=== PATIENT | male | born 1940 | race Caucasian/White ===

== ENCOUNTER 2024-07-23 11:39 | Inpatient (IN) | payer MEDICARE, SELFPAY ==
[2024-07-17 12:33] VITALS: BMI 33.5
--- NOTE | 2024-07-19 15:41 | CM.SWNOTE ---
DCP Pre-Surgery Note: Pt called this [facility] Desk with questions about discharge plans, pt and son (Prateek) are on the call. Pt is concerned as he lives alone on [address] (all children live in [place] and have already determined they are not able to be with patient post-surgery), that he would not be able to sustain recovery independently. Pt discussed a preference for [facility]. DCP discussed at length that pt's surgery of a L TKA is ambulatory and would depend on utilization review as well as PT/OT assessment; pt states he has a co-morbidity of dizziness. DCP explained the levels of rehab and that facilities can be reviewed on Medicare.gov. DCP reviewed other options upon discharge: support on [address] (friends/neighbors), home health. Pt verbalized understanding and reiterated that there is no one else to support locally which is why he is really hoping for a SNF disposition; would be open to home health. Pt and son declined recommendation for private caregiving contacts. Pt son requested his contact info be updated in pt chart as main emergency contact post-surgery, pt consented. Pt main Bladimir KHAN Jr, not available post-surgery, per pt. DCP updated EMR to reflect Prateek as Emergency Contact. Reviewed EMR, it has been identified that CM team is already aware of pt due to previous discussion during Pre-Anesthesia assessment. Plan: Surgery scheduled for July 23, CM team to follow for evolving care plans. BURKE Contreras
[2024-07-23] VITALS (15 sets, daily range): BP systolic 94–148; BP diastolic 43–75; PULSE 72–80; RESP 12–98; TEMP 36.1–37.5; O2SAT 91–99; BMI 33.5
--- NOTE | 2024-07-23 06:00 | DI.RAD.S_ITS ---
PROCEDURE: XR KNEE LT 1TO2V INDICATIONS: TKA TECHNIQUE: 2 view(s) of the knee acquired. COMPARISON: None. FINDINGS: Bones: Patient is status post knee joint arthroplasty. Hardware components are in expected positions. Visualized bony structures are intact. Soft tissues: Overlying postoperative changes are noted. IMPRESSION: Expected post-operative appearance of a knee arthroplasty. Dictated by: Hoda Gordon MD, PhD on 07/24/2024 at 12:21 Approved by: Hoda Gordon MD, PhD on 07/24/2024 at 12:22
[2024-07-23] MEDS: CELECOXIB 200 MG CAPSULE 400 MG PO (12:46)
[2024-07-23] MEDS: ACETAMINOPHEN 325 MG TABLET 975 MG PO (12:46)
[2024-07-23] MEDS: VANCOMYCIN 1,000 MG in SODIUM CHLORIDE 0.9% 250 ML 250 MG IV (12:47)
[2024-07-23] MEDS: LACTATED RINGERS 1,000 ML 42 ML IV (12:48)
--- NOTE | 2024-07-23 13:46 | PM.PREOP ---
Pre-operative Note Interval Note History & Physical reviewed/Exam performed by Physician: Yes Changes to H&P: No
--- NOTE | 2024-07-23 13:47 | PM.OP.1 ---
Operative Date/Time/Diagnoses Date of procedure: 07/23/24 Time of procedure: 14:00 Pre-op diagnosis: left knee total knee Post-op diagnosis: same Procedure & Clinicians Procedure: Left total knee arthroplasty Same procedure as scheduled: Yes Indications: The patient has had progressively worsening left knee pain with radiographic changes consistent with arthritis. Non-operative management has failed and the patient has requested total knee replacement. The risks, benefits and alternatives to surgery were discussed with the patient prior to proceeding. Risks discussed included, but were not limited to, failure to relieve pain, stiffness, infection, nerve damage, deep venous thrombosis, pulmonary embolism, stroke, coma, heart attack, permanent paralysis and , as well as the potential need for eventual revision of the prosthetic. Surgeon: Josee Louis Repair Specialist: Yue Means Anesthesia Type: General and Spinal Operative Notes Findings: Severe left knee OA, adequate stability Closure Type: primary Specimen(s): none sent Prosthetic devices, grafts, tissues, transplants, or devices: Louis and nephew elizabeth BCS2 size 5 femur, size 4 tibia, poly 9, patella 35 by 7.5 Estimated Blood Loss (mL): 250 Blood products transfused: none Tourniquet time (min): 84 Procedure in detail: The patient was seen in the pre-operative area, where the patient identified the left knee as the operative site and this was marked with my initials. The patient received pre-operative antibiotics, and was taken to the operating room and placed on the operative table in the supine position. After satisfactory anesthesia, a radio time sales supervisor out was performed. The left leg was encircled with a tourniquet about the proximal thigh, and the leg was prepared from the toes to the tourniquet with ChloroPrep in the usual fashion and draped through sterile drapes. The leg was elevated and exsanguinated with Eschmark bandage and the tourniquet inflated to [250] mmHg pressure. The PA was used during the procedure and was essential for intraoperative retraction and safe implantation of the components. The knee was approached through an approximately 18 cm incision centered over the patella and carried into the knee through a medial parapatellar arthrotomy. Portion of the medial and lateral meniscus was resected. Soft tissue was carefully mobilized around the patella the patella was measured with a caliper. Bone was resected from the patella and the patellar height was reconstituted with up an appropriate sized patellar component. A cover was then placed on the patella. A small amount of additional medial and lateral meniscus was resected. There was a venous tourniquet and we put the tourniquet down for awhile and then reinflated it to 300 mmHg. Cori pins were placed for robotic assisted navigation. The adjustable guide was pinned to the tibia. Plan was carefully made and developed in order to allow reconstruction of the knee. The knee was meticulously mapped. The Cori robotic bur was used for the distal femoral resection. It looked like an appropriate distal femoral cut and the cut was made without difficulty. The rotation was assessed and the appropriate size femoral guide was placed on the distal femur and finishing cuts were made. There was no evidence of notching. The anterior, posterior and chamfer cuts were then made. The posterior osteophytes and soft tissues were then removed. The posterior capsule was injected with part of a mixture of 60 ml 0.25% Marcaine mixed with 20 ml Exparel for post operative pain control. The remainder of this mixture was injected into the capsule and subcutaneous tissues during cement curing. The tibial guide was carefully and meticulously navigated. The proximal tibial cut was made without difficulty. The patient was placed in extension residual medial and lateral meniscus as well as any residual bone was carefully resected. [No] additional tibia was resected. Hemostasis was achieved especially posteriorly. Additional local was injected into the posterior capsule. The extension gap was assessed. The femoral component was trial was placed and the notch was finished. Trial tibial and femoral components were then placed and the knee placed through a range of motion. Range of motion was [0-130], with good stability throughout the range. The trials were then removed, and the tibia was finished. The bone was prepared with pulsatile lavage, and dried with a sponge. Cement was applied and the final prosthetics placed. Excess cement was removed during and after cement curing. A brief Betadine soak was performed. After confirming there was no extruded cement posteriorly, the final tibial insert was placed. The knee was copiously irrigated and the tourniquet deflated. Hemostasis was obtained with the Aquamantis. The capsule was closed with interrupted # 1 Vicryl suture. The subcutaneous layer was closed with barbed sutures, and the skin with a running 3-0 V-Lock suture and Surgical glue. An Aquacel Ag dressing was applied and the patient was taken to recovery having tolerated the procedure well. Complications: none Post-operative Condition: stable Disposition: Acute Care Plan for aftercare: The patient will be maintained on a standard total knee replacement protocol with weight bearing as tolerated. The patient will receive aspirin and sequential compression devices for DVT prophylaxis. The patient will be discharged home when safe for the home environment.
[2024-07-23] MEDS: CEFAZOLIN 2 GM/100 ML PREMIX 100 ML IV ×2 (14:40→22:33)
[2024-07-23] MEDS: TRANEXAMIC ACID 1,000 MG VIAL 1000 MG INJ ×2 (14:50→16:35)
--- NOTE | 2024-07-23 14:59 | SUR.OPER ---
Supine on padded OR bed. Pillow under head, arms secured on padded armboards <90 degree abduction. Safety belt across torso. Non-operative leg secured with tape over blanket over lower leg. Operative leg secured in DeMayo/Woodrow/Nathe positioner. Foam padded brace at thigh of operative leg.
[2024-07-23] MEDS: BUPIVACAINE LIPOSOME 266 MG/20 ML VIAL INJ (15:07)
[2024-07-23] MEDS: BUPIVACAINE 0.25% W/ EPI 30 ML VIAL 60 ML INJ (15:10)
[2024-07-23] MEDS: LACTATED RINGERS 1,000 ML 100 ML IV (19:06)
--- NOTE | 2024-07-23 19:41 | PC.NURSE ---
Patient arrived to room 212 at 1800. He is A&OX4, VSS, afebrile on RA. He denies pain, and reports LLE completely numb, soft ankle waves. IVF running at 100 ml/hr, admission assessment completed, POSTOP VS per protocol. BG 178 this evening. Endorsed to oncoming shift skin assessment. Patient states last voided approximately 11 30 a.m.
[2024-07-23] MEDS: ASPIRIN EC 81 MG TABLET PO (20:31)
[2024-07-23] MEDS: ATORVASTATIN 20 MG TABLET PO (20:31)
[2024-07-23] MEDS: DOCUSATE 100 MG CAPSULE PO (20:31)
[2024-07-23] MEDS: TAMSULOSIN 0.4 MG CAPSULE PO (20:31)
--- NOTE | 2024-07-23 23:07 | CM.MNRNOTE ---
Unable to void, reported left side & LLE still very numb. Bladder scanned noted 524 ml. Anguiano catheter placed, sterile/aseptic technique. Tolerated procedure well noted 500 ml. out clear yellow urine. Dr. Lopez notified order received to keep anguiano in placed. Will continue plan of care & monitor.
[2024-07-24] MEDS: LACTATED RINGERS 1,000 ML 100 ML IV (05:40)
[2024-07-24 06:40] LABS: Hematocrit 27.8 % (41-53); Hemoglobin 9.4 g/dL (13.5-17.5)
[2024-07-24] MEDS: CEFAZOLIN 2 GM/100 ML PREMIX 100 ML IV (06:47)
[2024-07-24 08:00] VITALS: BP 140/75; PULSE 93; RESP 17; TEMP 36.9; O2SAT 95
--- NOTE | 2024-07-24 08:11 | PM.PNPO.1 ---
Subjective Subjective Interval history: Patient is found resting in bed. Difficult evening with urinary retention. Landers was required to be placed Last night. He has not been able to get up and work with physical therapy. Patient's pain is controlled with oral medication. Pain is localized to surgical site. Patient declines any new numbness or tingling at the surgical extremity. Patient denies any shortness of breath, nausea, vomiting, fever or chills. he has lightheadedness and dizziness if he goes from lying to sitting too quickly. Exam Vital Signs (past 8 hours): Oxygen Delivery Method Room Air Oxygen Flow Rate 97 Narrative Exam Narrative: 5/5 strength in hip flexors, quadriceps, hamstrings, DF, PF, EHL bilaterally. Sensation to light touch intact throughout BLE. Calves soft, compressible, nontender. Dressing placed intraoperatively CDI. SCDs on and functioning Resp Effort & Inspection: normal respiratory effort and able to speak in complete sentences Objective Labs 07/24/24 05:40 Labs: Laboratory Results - last 24 hr 07/24/24 05:40 Hgb 9.4 L Hct 27.8 L PFSH Medical History (Updated 07/24/24 @ 08:15 by Amos Baptiste PA-C) Enlarged prostate Depression Osteoarthritis Diabetes (1988) Diverticulitis HLD (hyperlipidemia) HTN (hypertension) Nasal congestion Hearing loss RLS (restless legs syndrome) Dizziness Subdural hematoma (~1990) Surgical History (Updated 07/17/24 @ 13:32 by Magalys Biswas RN) Hx of colonoscopy History of back surgery Hx of tonsillectomy Hx of eye surgery Hx of bilateral cataract extraction Status post cholecystectomy Social History household members: significant other Smoking Status: Never smoker alcohol intake: current Assessment & Plan Post-op Assessment and plan (1) Postoperative urinary retention: Assessment and Plan narrative: Remove Landers today. Ambulate with PT. Bladder scan and re catheter results fall within protocol guidelines. Postoperative Procedures: Procedures Operation Date: 07/23/24 13:45 Actual Procedure Side Surgeon p Total Knee Arthroplasty - Robot Left Josee Louis MD Postoperative day: 1 Postoperative status: doing well and urinary retention Postoperative plan: routine post-op care and voiding trials Postoperative plan narrative: remove catheter. Bladder scan as indicated For urinary retention. Ambulate and weight bear as tolerated with assistive devices with PT/OT. Aspirin 81 mg twice a day for 6 weeks for DVT prevention. Baseline pain relief with acetaminophen 500mg every 4 hours as needed and ibuprofen 400 mg every 4 hours as needed. Oxycodone 5 mg every 4 hours as needed for breakthrough pain. Discharge plan to SNF due to insufficient support at home with history of syncopal episodes and now acute postoperative urinary retention. Time Spent With Patient Time with patient: 15-24 minutes
[2024-07-24] MEDS: FERROUS SULFATE 325 MG TABLET PO (09:05)
[2024-07-24] MEDS: LORATADINE 10 MG TABLET PO (09:05)
[2024-07-24] MEDS: ASPIRIN EC 81 MG TABLET PO ×2 (09:05→21:01)
[2024-07-24] MEDS: DOCUSATE 100 MG CAPSULE PO ×2 (09:05→21:01)
[2024-07-24] MEDS: DOXYCYCLINE HYCLATE 100 MG TABLET 50 MG PO (09:05)
[2024-07-24] MEDS: CITALOPRAM 10 MG TABLET 20 MG PO (09:05)
[2024-07-24] MEDS: ACETAMINOPHEN 325 MG TABLET 650 MG PO ×3 (09:09→22:29)
[2024-07-24] MEDS: lisinopriL 20 MG TABLET PO (09:30)
--- NOTE | 2024-07-24 10:25 | PT.IIE ---
Current Diagnoses Unilateral primary osteoarthritis, left knee (07/23/24) Surgery Performed Operation Date: 07/23/24 13:45 Actual Procedures p Total Knee Arthroplasty - Robot(Left) - Josee Louis MD Surgical History (Last Updated 07/17/24 @ 13:32 by Magalys Biswas, RN) History of back surgery Hx of bilateral cataract extraction Hx of colonoscopy Hx of eye surgery Hx of tonsillectomy Status post cholecystectomy Medical History (Last Updated 07/17/24 @ 13:39 by Magalys Biswas, RN) Depression Diabetes (1988) Diverticulitis Dizziness Enlarged prostate Hearing loss HLD (hyperlipidemia) HTN (hypertension) Nasal congestion Osteoarthritis RLS (restless legs syndrome) Subdural hematoma (~1990) Physical Therapy Inpatient Evaluation/Re-Eval M1 PT/OT-IP Prior Functional Status Start: 07/24/24 13:18 Freq: NEEDED Status: Active Protocol: Document 07/24/24 10:25 AB (Rec: 07/24/24 13:43 AB [id number]) Medical Review Prior Functional Status Medical History Reviewed Yes Communication able to make needs known Mobility and Gait pt stated that he was mod I with all mobilities and ambulation without AD indoors/ outdoors but occasionally uses his SPC/walking sticks depending on his knee pain Activities of Daily Living and IADL's per OT note: Pt independent with ADL,IADL, and drives. Social History Household Members none Living Arrangements House Number of Floors (Floors) Two Floors Number of Stairs To Enter/Railing? no steps to enter; pt will stay on main level of the house Home Environment Standard Height Toilet,Walk in Shower Home Equipment Front Wheel Walker,Straight Cane,Raised Toilet Seat w/ Armrests,Shower Seat without Backrest,Hand Held Shower Additional Social History Comment pt lives alone but stays at his friend's house 5 days /wk and mostly during the night per pt M2 PT-IP Current Condition Start: 07/24/24 13:18 Freq: NEEDED Status: Active Protocol: Document 07/24/24 10:25 AB (Rec: 07/24/24 13:43 AB [id number]) Physical Therapy Current Condition Current Condition Evaluation Date 07/24/24 Treatment Diagnosis s/p L TKA; difficulty in walking Onset Date 07/23/24 M3 PT-IP Subjective Start: 07/24/24 13:18 Freq: NEEDED Status: Active Protocol: Document 07/24/24 10:25 AB (Rec: 07/24/24 13:43 AB [id number]) Subjective Physical Therapy Visit Type Type Initial Evaluation Visit Start Time 10:25 Visit Stop Time 11:20 Number of LATHE TURNER Visits 0 Physical Therapy Visit Comments Patient Comments agreeable to do PT Therapy Pain Assessment Pain When Pain Assessed At Rest Pain Present Pain Present Pain Reported Location Left Knee Intensity 8 Pain Management Techniques Apply Cold,Distraction, Modification of Treatment,Re- positioning M4 PT-IP Mobility and Gait Start: 07/24/24 13:18 Freq: NEEDED Status: Active Protocol: Document 07/24/24 10:25 AB (Rec: 07/24/24 13:43 AB [id number]) PT-Bed Mobility Assessment Sit to Supine Sit to Supine Standby Assistance PT-Transfer Assessment Sit to and From Stand Sit to and from Stand Moderate Assistance,1 Person Assistance,Use of Upper Extremities Equipment Transfer Assistive Device Gait Belt,Front Wheeled Walker Orthotic/Prosthetic Devices or Brace: No Transfers Transfer Destination Bed Transfer Technique ambulated Transfer Ability Level of Assist Moderate Assistance,1 Person Assistance,Use of Upper Extremities Comments Mobility Comments pt seen up transferring to the chair with nurse. observed pt hopping and not using LLE. pt sat on the chair. pt agreed to do PT. obtained PLOF and home set up from pt. pt stated that he cannot use LLE due to pain: 12/15 but does not want to take pain meds aside from tylenol. educated pt on importance of pain management for progress. pt understood. post-op folder provided and reviewed contens. pt completed seated heel slides and knee flexion stretching. educated pt on weight bearing and using LLE for mobility. pt completed sit to stand from the chair mod A and max cues. cued for L quads activation. pt ambulated in room ~ 30 ft initially requiring mod A and max cues but midway able to ambulate min A. pt sat on EOB . completed sit to supine SBA . pt wants to stay in bed and rest. positioned pt in bed. call light and table placed within reach. Gait Assessment Gait Gait Assistance Required: Minimum Assistance,Moderate Assistance,1 Person Assist Distance (Feet) 30 Able to Maintain Weight Bearing Status Yes During Gait Assistive Devices Assistive Device Gait Belt,Front Wheeled Walker Orthotic/Prosthetic Devices or Brace: No Gait Deviations General Gait Pattern Decreased Stride Length, Decreased Feet Clearance,Step- to Gait Factors Limiting Gait Function Factors Limiting Gait Function Decreased Activity Tolerance, Decreased Strength,Difficulty Following Directions,Limited Range of Motion,Pain,Poor Balance,Poor Safety Awareness PT-Balance Assessment Sitting Balance and Reactions Static Sitting Balance Ability Good Dynamic Sitting Balance Ability Good Standing Balance and Reactions Static Standing Balance Ability Fair Dynamic Standing Balance Ability Poor Device Used FWW M5 PT-IP Objective Assessments Start: 07/24/24 13:18 Freq: NEEDED Status: Active Protocol: Document 07/24/24 10:25 AB (Rec: 07/24/24 13:43 AB [id number]) Orientation Orientation/Cognition Level of Alertness Alert Orientation Name,Place,Situation Language Function Ability No Deficits Noted Safety Awareness Decreased Safety Awareness Memory Description No Deficits Noted Gross Range of Motion Lower Extremity ROM Assessment Left Impaired Impairments L knee flexion: ~ 70 deg L knee extension: ~ 30 deg less to 0 Strength Lower Extremity Strength Assessment Left Impaired Hip 4-/5 Knee 3+/5 Muscle Tone Muscle Tone WNL Yes M6 PT-IP Treatment Start: 07/24/24 13:18 Freq: NEEDED Status: Active Protocol: Document 07/24/24 10:25 AB (Rec: 07/24/24 13:43 AB [id number]) Physical Therapy Treatment Exercises Exercises Heel Slides,Seated Knee Flexion/Extension Education Education Provided Precautions,Weight Bearing Status,Post-Op Packet,Safety M7 PT-IP Assessment and Plan Start: 07/24/24 13:18 Freq: NEEDED Status: Active Protocol: Document 07/24/24 10:25 AB (Rec: 07/24/24 13:43 AB [id number]) PT Summary Assessment and Plan Potential Rehabilitation Potential Good Status of Condition at Evaluation Evolving Summary Impairments Pain,ROM,Strength,Balance, Coordination,Sensation,Tone, Cognition,Bed Mobility, Transfers,Gait,Activity Tolerance Assessment Summary pt is an 84 y/o M s/p L TKA POD 1. pt is WBAT on LLE. Pt requiring mod A for sit to stand and min to mod A for ambulation using FWW. pt will require 24/7 assist at this time and will benefit from SNF rehab to improve overall strength and mobility. Goals Bed Mobility Goal Independent Transfer Goal Standby Assistance,Front Wheeled Walker Gait Goal Standby Assistance,Front Wheel Walker Gait Distance 150 Days to Meet Goals 5 Frequency of Treatment Frequency Of Treatment Twice a Day Treatment Plan Physical Therapy Treatment Plan Bed Mobility Training,Transfer Training,Gait Training, Therapeutic Exercise,Balance Retraining,Post Op Education, Discharge Planning,Hot or Cold Pack,Neuromuscular Re-ed, Coordination Retraining,Manual Therapy Weight Bearing Status Weight Bearing Status Weight Bear as Tolerated Allowed Weight Bearing Amount (enter % LLE WBAT or #) (%) Recommendations To Nursing Amount of Assist Needed 1 Person Assist Discharge Recommendations PT Discharge Recommendations SNF Rehab Transportation Needs at Discharge Private Vehicle,Wheelchair/ Cabulance - PT assist 1
--- NOTE | 2024-07-24 10:38 | CM.DANOTE ---
Initial DCP Assessment Note Pt is an 84 yo male, resident of [place], now POD#1 from left knee surgery by Dr Louis PCP: Nova Nelson Payer: DANILO/NAIF Reviewed chart, patient is INPT 07/24/24. Met w/patient, his SO and a good friend from [place]. Patient lives independently on [address] with his SO. SO assists with higher ADLs as needed, pain limits patient's mobility at times. Patient explains that he and his family have been researching post discharge options and patient would like to discharge to [facility] ([facility]). Patient has no back up plan currently. Discussed the general process to get into IPR, all pending bed availability. Patient states understanding, says he will discharge home w/SO and multiple friends to assist him with ADLs once he returns. Pending PT/OT today and availability of documentation; this SW will plan to send referral to [facility] today. Patient knows that there is also an IPR at [facility] in [facility]. CM team will plan to follow closely for coordination efforts. JEFFREY Garza Discharge Planning/Care Management CM Discharge Assessment Start: 07/24/24 10:34 Freq: Status: Active Protocol: Document 07/24/24 10:34 BIENVENIDO (Rec: 07/24/24 10:38 BIENVENIDO [id number]) Discharge Planning Assessment Assigned [employer] JEFFREY Hameed DPOA/Assigned Designee Name Yana SO : [phone] C: [phone] Prateek: Contact Information Bladimir (son)[phone] Advance Directives? Yes Advance Directives on File No History Provided By Patient,Friend,Significant Other,Medical Record Prior Living Arrangements House Household Members significant other Type of transportation used prior to Drives own vehicle admit Independent with ADL's Yes Is patient alert and oriented? Yes Needs Assistance With Meal Prep,Home Chores / Shopping Barriers to Discharge Yes Comment Patient does not have the proper assistance needed for return home. Patient prefers [facility] Transportation Arrangement Likely private vehicle.
[2024-07-24] MEDS: OXYCODONE IR 5 MG TABLET PO ×2 (10:43→22:28)
[2024-07-24] MEDS: IBUPROFEN 400 MG TABLET PO ×2 (10:43→14:45)
--- NOTE | 2024-07-24 12:03 | OT.IP.EVAL ---
Current Diagnoses Unilateral primary osteoarthritis, left knee (07/23/24) Surgery Performed Operation Date: 07/23/24 13:45 Actual Procedures p Total Knee Arthroplasty - Robot(Left) - Josee Louis MD Past Medical History (Last Updated 07/17/24 @ 13:39 by Magalys Biswas, RN) Depression Diabetes (1988) Diverticulitis Dizziness Enlarged prostate Hearing loss HLD (hyperlipidemia) HTN (hypertension) Nasal congestion Osteoarthritis RLS (restless legs syndrome) Subdural hematoma (~1990) Surgical History (Last Updated 07/17/24 @ 13:32 by Magalys Biswas RN) History of back surgery Hx of bilateral cataract extraction Hx of colonoscopy Hx of eye surgery Hx of tonsillectomy Status post cholecystectomy Occupational Therapy Inpatient Evaluation/Re-Eval M1 PT/OT-IP Prior Functional Status Start: 07/24/24 12:02 Freq: NEEDED Status: Active Protocol: Document 07/24/24 12:02 [facility] (Rec: 07/24/24 12:17 [facility] [id number]) Medical Review Prior Functional Status Communication I Mobility and Gait Pt states did not use a device inside and use of SPC outside . Activities of Daily Living and IADL's Pt independent with ADL,IADL, and drives. Social History Household Members significant other Living Arrangements House Number of Floors (Floors) Two Floors Number of Stairs To Enter/Railing? 50 ft ofr terrain to negotiate and then able to enter the house and stay on the main level. Home Environment Standard Height Toilet,Walk in Shower Home Equipment Front Wheel Walker,Straight Cane,Bedside Commode Additional Social History Comment Pt states to go to skilled rehab as he feel it would be too much for his SO to assist him at home. M2 OT-IP Current Condition Start: 07/24/24 12:02 Freq: Status: Active Protocol: Document 07/24/24 12:02 [facility] (Rec: 07/24/24 12:17 [facility] [id number]) Occupational Therapy Current Condition Current Condition Evaluation Date 07/24/24 Treatment Diagnosis S/P L TKA Diagnosis Onset Date 07/23/24 M3 OT- IP Subjective and Pain Start: 07/24/24 12:02 Freq: Status: Active Protocol: Document 07/24/24 12:02 [facility] (Rec: 07/24/24 12:17 [facility] [id number]) OT- Subjective Occupational Therapy Visit Type Type Initial Evaluation Visit Start Time 09:20 Visit Stop Time 12:03 Notes Split treatment from [id number] and [id number]. Occupational Therapy Visit Comments Patient Comments Pt agreed to get up to brush his teeth. Patient/Caregiver Goals TO get better and go to skilled rehab prior to going home. OT Pain Assessment Pain When Pain Assessed During Mobility Pain Present Pain Present Pain Reported Location Left Knee Intensity 6 Scale Used Numeric (0 - 10) M4 OT- IP ADL's Start: 07/24/24 12:02 Freq: Status: Active Protocol: Document 07/24/24 12:02 [facility] (Rec: 07/24/24 12:17 [facility] [id number]) OT [id number] Comments OT Self-Feeding Comments Not at meal time. OT ADL-Grooming General Evaluation Grooming Ability Standby Assistance Areas Needing Assistance Retrieving/Set-up of Grooming Items Comments OT Grooming Comments Able to do while standing at the sink with FWW. OT ADL-Oral Care General Eval Oral Care Ability Independent OT ADL-Dressing General Eval Lower Body Dressing Ability Maximum Assistance Areas Needing Assistance Socks Comments OT Dressing Comments Able to talk about LB dressing equipment. Educated best to dress his LLE first and take out last. OT ADL-Toileting General Evaluation Toileting Ability Total Assistance Areas Needing Assistance Empty Catheter or Colostomy Comments OT Toileting Comments Landers in place. OT ADL-Bathing Comments OT Bathing Comments Pt will benefit from a shower chair at home. M5 OT- IP IADL's Start: 07/24/24 12:02 Freq: Status: Active Protocol: Document 07/24/24 12:02 [facility] (Rec: 07/24/24 12:17 [facility] [id number]) OT-Instrumental Activities of Daily Living Deficits IADL Deficits Identified Deficits Home Safety Awareness Awareness of Need for Assistance at Home Good Awareness Medication Management Medication Management Comments Pt states did prior. Money Management Money Management Comments Pt states did prior. Meal Preparation Meal Preparation Comments Pt will benefit from assist. [employer] Advisor [employer] Advisor Comments Pt will need assist. M6 OT- IP Functional Cognition Start: 07/24/24 12:02 Freq: Status: Active Protocol: Document 07/24/24 12:02 [facility] (Rec: 07/24/24 12:17 [facility] [id number]) Cognitive Factors Limiting Selfcare Function Cognitive Ability Level of Alertness Alert Patient Orientation Name,Place,Situation Attention Span Ability Capable of Focused Attention, Capable of Sustained Attention Ability to Follow Commands Able to Follow One Step Commands Memory Description Short Term Impaired Safety Awareness Underestimates Need for Assistance Cognitive Comments Cognitive Assessment Comments Pt able to follow commands for ADL and mobility needs. Pt needing vc for safety with FWW . Pt needing vc to back up all the way to surfaces prior to sitting down. In addition vc to push with his hand on surfaces to stand versus trying to grab the FWW to stand. OT- Vision and Hearing OT- Hearing Assessment OT- Hearing Assessment Hearing Impaired OT- Vision Assessment Visual Acuity Glasses All The Time Visual Attentiveness WFL Occular Pursuits WFL M7 OT- IP Mobility and Balance Start: 07/24/24 12:02 Freq: Status: Active Protocol: Document 07/24/24 12:02 [facility] (Rec: 07/24/24 12:17 [facility] [id number]) OT- Bed Mobility Assessment Supine to Sit Supine to Sit Assist Moderate Assistance OT-Transfer Assessment Sit to and From Stand Sit to and from Stand Moderate Assistance Transfers Transfer Ability Minimal Assistance Technique Transfer Destination Bed,Chair Transfer Technique Stand Step Pivot Devices Transfer Assistive Devices Gait Belt,Front Wheeled Walker Comments Mobility Comments MODA to help get his trunk upright to the edge of the bed and heavily using the bed rail to assist as well. MODA to stand to the FWW and SILVESTRE for balance. Pt able to walk with the FWW to the sink and then to the recliner. Pt is a bit unsteady on his feet and heavy use of his arms on the FWW. While standing , pt mainly just using his RLE and not putting much weight on his LLE.. OT- Balance Assessment Sitting Balance and Reactions Static Sitting Balance Ability Good Dynamic Sitting Balance Ability Fair Standing Balance and Reactions Static Standing Balance Ability Fair Dynamic Standing Balance Ability Poor M8 OT- IP Objective Assessments Start: 07/24/24 12:02 Freq: Status: Active Protocol: Document 07/24/24 12:02 [facility] (Rec: 07/24/24 12:17 [facility] [id number]) OT Gross Range of Motion Upper Extremity Range of Motion Assessment Within Functional Limits OT Strength Upper Extremity Strength Assessment Within Functional Limits M9 OT- IP Assessment and Plan Start: 07/24/24 12:02 Freq: Status: Active Protocol: Document 07/24/24 12:02 [facility] (Rec: 07/24/24 12:17 [facility] [id number]) OT Summary Assessment and Plan Potential Rehabilitation Potential Good Analytic Complexity at Evaluation Low Summary OT Impairments Pain,Range of Motion,Strength, Balance,Functional Mobility, Grooming,Dressing,Toileting, Bathing,Toilet Transfers, Shower Transfers,Activity Tolerance Progress Towards Goals Slow Progress due to Pain,Slow Progress due to Medical Issues,Slow Progress due to Activity Tolerance Assessment Summary Pt low complexity and main barrier are pain, decreased activity tolerance, balance and needing assist for all ADL and mobility needs. Pt looking to go to skilled rehab and will benefit from continued training for safety with transitions, ADL needs, and mobility needs. Pt to go to skilled rehab when medically stable. Goals Self-Feeding Goal Independent Grooming Goal Independent Dressing Goal Independent,Redevelopment Manager,Sock Aid Toileting Goal Independent Bathing Goal Independent Toilet Transfer Goal Independent Shower Transfer Goal Independent Days to Meet Goals 15 Frequency of Treatment Other frequency 5x/week Treatment Plan OT Treatment Plan ADL Training,Functional Mobility,Patient/Family Education,Discharge Planning Other Treatment Recommendations and Next Practice LB dressing equipment Treatment Focus . Discharge Recommendations OT Discharge Recommendations SNF Rehab Transportation Needs at Discharge Private Vehicle
--- NOTE | 2024-07-24 15:10 | PT.IPTN ---
Current Diagnoses Unilateral primary osteoarthritis, left knee (07/23/24) Surgery Performed Operation Date: 07/23/24 13:45 Actual Procedures p Total Knee Arthroplasty - Robot(Left) - Josee Louis MD Physical Therapy Treatment Note M2 PT-IP Current Condition Start: 07/24/24 13:18 Freq: NEEDED Status: Active Protocol: Document 07/24/24 10:25 [facility] (Rec: 07/24/24 13:43 AB [id number]) Physical Therapy Current Condition Current Condition Evaluation Date 07/24/24 Treatment Diagnosis s/p L TKA; difficulty in walking Onset Date 07/23/24 M3 PT-IP Subjective Start: 07/24/24 13:18 Freq: NEEDED Status: Active Protocol: Document 07/24/24 15:10 [facility] (Rec: 07/24/24 17:21 AB [id number]) Subjective Physical Therapy Visit Type Type Treatment Note Visit Start Time 15:10 Visit Stop Time 15:33 Number of TELEPHONE ANSWERER Visits 0 Physical Therapy Visit Comments Patient Comments able to make needs known Therapy Pain Assessment Pain When Pain Assessed At Rest Pain Present Pain Present Pain Reported Location Left Knee Intensity 6 Scale Used 8/10 with movement Pain Management Techniques Apply Cold,Distraction, Modification of Treatment,Re- positioning,Timing of Activity with Medications M4 PT-IP Mobility and Gait Start: 07/24/24 13:18 Freq: NEEDED Status: Active Protocol: Document 07/24/24 15:10 AB (Rec: 07/24/24 17:21 AB [id number]) PT-Transfer Assessment Comments Mobility Comments pt sitting on the chair and agreed to do PT. positioned chair in upright position with pt's BLE down on the floor. pt completed seated heel slides x 10 reps x 2 sets. pt c/o lightheadedness and cold sweats. BP checked: 93/44. rechecked: 90/45. informed nurse. elevated legrests on the chair. BP checked: 108/47 . reclined pt back and BP checked: 120/59. nurse in room . call light and table placed within reach. M5 PT-IP Objective Assessments Start: 07/24/24 13:18 Freq: NEEDED Status: Active Protocol: Document 07/24/24 10:25 [facility] (Rec: 07/24/24 13:43 AB [id number]) Orientation Orientation/Cognition Level of Alertness Alert Orientation Name,Place,Situation Language Function Ability No Deficits Noted Safety Awareness Decreased Safety Awareness Memory Description No Deficits Noted Gross Range of Motion Lower Extremity ROM Assessment Left Impaired Impairments L knee flexion: ~ 70 deg L knee extension: ~ 30 deg less to 0 Strength Lower Extremity Strength Assessment Left Impaired Hip 4-/5 Knee 3+/5 Muscle Tone Muscle Tone WNL Yes M6 PT-IP Treatment Start: 07/24/24 13:18 Freq: NEEDED Status: Active Protocol: Document 07/24/24 15:10 AB (Rec: 07/24/24 17:21 AB [id number]) Physical Therapy Treatment Exercises Exercises Heel Slides Education Education Provided Safety M7 PT-IP Assessment and Plan Start: 07/24/24 13:18 Freq: NEEDED Status: Active Protocol: Document 07/24/24 15:10 AB (Rec: 07/24/24 17:21 AB [id number]) PT Summary Assessment and Plan Potential Rehabilitation Potential Fair Summary Impairments Pain,ROM,Strength,Balance, Coordination,Sensation,Tone, Cognition,Bed Mobility, Transfers,Gait,Activity Tolerance Progress Towards Goals Slow Progress due to Pain,Slow Progress due to Activity Tolerance,Slow Progress - Other Assessment Summary pt continues to c/o increase L knee pain and unable to do much activities today due to low BP with c/o lightheadedness and cold sweats. pt will need assistance at home and has to be more independent than current mobiltiy level. pt is motivated and wants to be able to go to acute rehab. will continue to assess progress. Goals Bed Mobility Goal Independent Transfer Goal Standby Assistance,Front Wheeled Walker Gait Goal Standby Assistance,Front Wheel Walker Gait Distance 150 Days to Meet Goals 5 Frequency of Treatment Frequency Of Treatment Twice a Day Treatment Plan Physical Therapy Treatment Plan Bed Mobility Training,Transfer Training,Gait Training, Therapeutic Exercise,Balance Retraining,Post Op Education, Discharge Planning,Hot or Cold Pack,Neuromuscular Re-ed, Coordination Retraining,Manual Therapy Weight Bearing Status Weight Bearing Status Weight Bear as Tolerated Allowed Weight Bearing Amount (enter % LLE WBAT or #) (%) Recommendations To Nursing Amount of Assist Needed 1 Person Assist Discharge Recommendations PT Discharge Recommendations SNF vs Acute Rehab Transportation Needs at Discharge Private Vehicle,Wheelchair/ Cabulance - PT assist 1
--- NOTE | 2024-07-24 15:34 | CM.DPNOTE ---
DCP Cont Updated PT/OT that patient prefers acute inpatient rehab. Referral sent to [facility] acute inpatient rehab per patient's preference. [email or web address] Spoke with Latisha who explained she had spoken with patient before his surgery and is holding a private room for this patient. Explained that therapy notes are currently recommending SNF although upcoming recommendations are likely to reflect inpatient acute rehab. CM team following closely for coordination efforts. JW
--- NOTE | 2024-07-24 15:50 | OT.IP.TRT ---
Current Diagnoses Unilateral primary osteoarthritis, left knee (07/23/24) Surgery Performed Operation Date: 07/23/24 13:45 Actual Procedures p Total Knee Arthroplasty - Robot(Left) - Josee Louis MD Occupational Therapy Treatment Note M2 OT-IP Current Condition Start: 07/24/24 12:02 Freq: Status: Active Protocol: Document 07/24/24 12:02 [facility] (Rec: 07/24/24 12:17 [facility] [id number]) Occupational Therapy Current Condition Current Condition Evaluation Date 07/24/24 Treatment Diagnosis S/P L TKA Diagnosis Onset Date 07/23/24 M3 OT- IP Subjective and Pain Start: 07/24/24 12:02 Freq: Status: Active Protocol: Document 07/24/24 15:42 [facility] (Rec: 07/24/24 15:50 [facility] [id number]) OT- Subjective Occupational Therapy Visit Type Type Treatment Note Visit Start Time 15:35 Visit Stop Time 15:40 Occupational Therapy Visit Comments Patient Comments Spoke to pt and pt prefers to go to inpt rehab. Patient/Caregiver Goals Pt wanting to go to inpt rehab . M8 OT- IP Objective Assessments Start: 07/24/24 12:02 Freq: Status: Active Protocol: Document 07/24/24 12:02 [facility] (Rec: 07/24/24 12:17 [facility] [id number]) OT Gross Range of Motion Upper Extremity Range of Motion Assessment Within Functional Limits OT Strength Upper Extremity Strength Assessment Within Functional Limits M9 OT- IP Assessment and Plan Start: 07/24/24 12:02 Freq: Status: Active Protocol: Document 07/24/24 15:42 [facility] (Rec: 07/24/24 15:50 [facility] [id number]) OT Summary Assessment and Plan Potential Rehabilitation Potential Good Analytic Complexity at Evaluation Low Summary OT Impairments Pain,Range of Motion,Strength, Balance,Functional Mobility, Grooming,Dressing,Toileting, Bathing,Toilet Transfers, Shower Transfers,Activity Tolerance Progress Towards Goals Slow Progress due to Pain,Slow Progress due to Medical Issues,Slow Progress due to Activity Tolerance Assessment Summary Spoke to pt and pt states wanting to go to inpt rehab. Pt feels that he will be able to handle the work load at inpt rehab and motivated to get better. Pt will benefit from inpt rehab to continue to practice safety needs, core strength and to be able to use his LLE as pt in flavoring his RLE at this time. Therefore suggest pt go to inpt rehab. Goals Self-Feeding Goal Independent Grooming Goal Independent Dressing Goal Independent,Sanitary Plumber,Sock Aid Toileting Goal Independent Bathing Goal Independent Toilet Transfer Goal Independent Shower Transfer Goal Independent Days to Meet Goals 15 Treatment Plan OT Treatment Plan ADL Training,Functional Mobility,Patient/Family Education,Discharge Planning Other Treatment Recommendations and Next Practice LB dressing equipment Treatment Focus . Discharge Recommendations OT Discharge Recommendations Acute Rehab Transportation Needs at Discharge Private Vehicle
[2024-07-24 17:00] VITALS: BP 148/60; PULSE 78; RESP 16; TEMP 36.8; O2SAT 98
[2024-07-24 21:00] VITALS: BP 140/96; PULSE 78; RESP 18; TEMP 37.1; O2SAT 96
[2024-07-24] MEDS: ATORVASTATIN 20 MG TABLET PO (21:01)
[2024-07-25 08:00] VITALS: BP 155/81; PULSE 86; RESP 18; TEMP 36.4; O2SAT 96
[2024-07-25] MEDS: DOXYCYCLINE HYCLATE 100 MG TABLET 50 MG PO (08:34)
[2024-07-25] MEDS: DOCUSATE 100 MG CAPSULE PO ×2 (08:38→20:56)
[2024-07-25] MEDS: FERROUS SULFATE 325 MG TABLET PO (08:38)
[2024-07-25] MEDS: ASPIRIN EC 81 MG TABLET PO ×2 (08:38→20:56)
[2024-07-25] MEDS: CITALOPRAM 10 MG TABLET 20 MG PO (08:38)
[2024-07-25] MEDS: ACETAMINOPHEN 325 MG TABLET 650 MG PO (08:39)
[2024-07-25] MEDS: LORATADINE 10 MG TABLET PO (08:39)
[2024-07-25 08:40] VITALS: BP 172/86; PULSE 92
[2024-07-25] MEDS: IBUPROFEN 400 MG TABLET PO (08:40)
[2024-07-25] MEDS: lisinopriL 20 MG TABLET PO (08:40)
[2024-07-25] MEDS: OXYCODONE IR 5 MG TABLET PO ×2 (08:47→11:20)
--- NOTE | 2024-07-25 10:38 | P.PN_ITS ---
Subjective Subjective Interval history: Bladimir is a pleasant 84 year old male who is POD#2 s/p L TKA by Dr. Louis. This morning patient reports he is still having a significant amount of pain, he has had a hard time mobilizing w/ PT d/t the pain as well as having a hard time sleeping. He lives alone, and has limited support nearby, because of this, in combination w/ his slow progression w/ PT, acute rehab is likely necessary. His son Lives in [place]. He was having difficulty w/ urinary retention post-op and required Landers catheterization after surgery. This has since been removed and he has urinated 3x today. Denies fever, chills, chest pain, SOB, nausea, vomiting. Does complain of a stuffy nose. He is using Flonase. Exam Vital Signs (past 8 hours): - 07/25/24 08:00 07/25/24 08:40 Temperature 97.6 F Pulse Rate 86 92 H Respiratory Rate 18 Blood Pressure 155/81 H 172/86 H Pulse Oximetry 96 Oxygen Flow Rate 0 Oxygen Delivery Method Room Air Oxygen Flow Rate 0 Narrative Exam Narrative: Patient sitting comfortably in bed during our interview today. No acute distress. AOx3. Grossly normal alignment of the LLE with mild-moderate swelling throughout extending to the ankle. 5/5 strength with DF, PF, EHL bilaterally. Gross sensation intact throughout bilateral lower extremities. Calves soft and non-tender bilaterally. SCDs are on and functioning. Brisk capillary refill, pulses intact. Post-surgical Aquacel dressing clean, dry and intact over the left knee without drainage. Objective Labs 07/24/24 05:40 [facility] Medical History (Updated 07/24/24 @ 08:15 by Amos Baptiste PA-C) Enlarged prostate Depression Osteoarthritis Diabetes (1988) Diverticulitis HLD (hyperlipidemia) HTN (hypertension) Nasal congestion Hearing loss RLS (restless legs syndrome) Dizziness Subdural hematoma (~1990) Surgical History (Updated 07/17/24 @ 13:32 by Magalys Biswas RN) Hx of colonoscopy History of back surgery Hx of tonsillectomy Hx of eye surgery Hx of bilateral cataract extraction Status post cholecystectomy Social History household members: significant other Smoking Status: Never smoker alcohol intake: current Assessment & Plan Post-op Postoperative Procedures: Procedures Operation Date: 07/23/24 13:45 Actual Procedure Side Surgeon p Total Knee Arthroplasty - Robot Left Josee Louis MD Postoperative plan narrative: 1) Plan to discharge to acute rehab once available. Appreciate CM assistance w/ coordination. 2) Continue multimodal pain management with ice to the knee for additional pain control. 3) ASA b.i.d. for DVT prophylaxis for 6 weeks. SCDs to be worn while in bed. 4) Work w/ physical therapy to improve range of motion and mobility. Encouraged patient to focus on movement, even if just moving his knee while in bed a little bit at a time. 5) Keep dressing intact, clean, dry until 2 week postop appointment. No soaking the incision site in pools or tubs. No topical ointments or creams to the incision site. 6) Follow up at [facility] orthopedics in 2 weeks for a postop appointment and wound check. All patient's questions were answered, he demonstrates understanding and is in agreement with the plan. Call our office if any questions or concerns arise.
--- NOTE | 2024-07-25 11:35 | PT.IPTN ---
Current Diagnoses Unilateral primary osteoarthritis, left knee (07/23/24) Other postprocedural complications and disorders of genitourinary system (07/23/24) Other retention of urine (07/23/24) Surgery Performed Operation Date: 07/23/24 13:45 Actual Procedures p Total Knee Arthroplasty - Robot(Left) - Josee Louis MD Physical Therapy Treatment Note M2 PT-IP Current Condition Start: 07/24/24 13:18 Freq: NEEDED Status: Active Protocol: Document 07/24/24 10:25 AB (Rec: 07/24/24 13:43 AB [id number]) Physical Therapy Current Condition Current Condition Evaluation Date 07/24/24 Treatment Diagnosis s/p L TKA; difficulty in walking Onset Date 07/23/24 M3 PT-IP Subjective Start: 07/24/24 13:18 Freq: NEEDED Status: Active Protocol: Document 07/25/24 11:00 KS (Rec: 07/25/24 12:19 KS [id number]) Subjective Physical Therapy Visit Type Type Treatment Note Visit Start Time 11:00 Visit Stop Time 11:35 Number of WASH MILL OPERATOR Visits 1 Physical Therapy Visit Comments Patient Comments agreeable to do PT Therapy Pain Assessment Pain When Pain Assessed During Mobility Pain Present Pain Present Pain Reported Location Left Knee Intensity 8 Scale Used Numeric (0 - 10) Pain Behaviors Calling Out,Facial Grimacing, Holding Area,Moaning, Restlessness,Wincing Pain Management Techniques Distraction,Elevation, Modification of Treatment,Re- positioning,Timing of Activity with Medications M4 PT-IP Mobility and Gait Start: 07/24/24 13:18 Freq: NEEDED Status: Active Protocol: Document 07/25/24 11:00 KS (Rec: 07/25/24 12:19 KS [id number]) PT-Bed Mobility Assessment Sit to Supine Sit to Supine Moderate Assistance,1 Person Assistance,Bedrails Scooting Scooting to Edge of Bed Maximum Assistance PT-Transfer Assessment Sit to and From Stand Sit to and from Stand Moderate Assistance,1 Person Assistance,Use of Upper Extremities Equipment Transfer Assistive Device Gait Belt,Front Wheeled Walker Orthotic/Prosthetic Devices or Brace: No Transfers Transfer Destination Chair Transfer Technique ambulated Transfer Ability Level of Assist Moderate Assistance,1 Person Assistance,Use of Upper Extremities Comments Mobility Comments Pt in bed upon arrival, c/o severe pain today and reporting worse than yesterday . Mod A for sup<>sit, Max A for scooting to EOB. Pt calls out in pain w/ movement. Pt maintained seated balance EOB SBA for a few minutes but did become sweaty, lightheaded, and nausea upon sitting. BP 160/68. Symptoms decreased after a few minutes. Mod A for sit<>stand w/ FWW. Pt again calls out in pain while weight bearing. He was able to complete a stand step pivot transfer from bed to chair using FWW and Min-Mod A for FWW mgmt. Mod A for slow descent into chair. Pt left in chair w/ all needs in reach. Gait Assessment Gait Gait Assistance Required: Minimum Assistance,Moderate Assistance,1 Person Assist Distance (Feet) 4 Able to Maintain Weight Bearing Status Yes During Gait Assistive Devices Assistive Device Gait Belt,Front Wheeled Walker Orthotic/Prosthetic Devices or Brace: No Gait Deviations General Gait Pattern Decreased Stride Length, Decreased Feet Clearance,Step- to Gait Factors Limiting Gait Function Factors Limiting Gait Function Decreased Activity Tolerance, Decreased Strength,Difficulty Following Directions,Limited Range of Motion,Pain,Poor Balance,Poor Safety Awareness Comments Gait Comments Unable to progress gait distance this AM due to severe pain. PT-Balance Assessment Sitting Balance and Reactions Static Sitting Balance Ability Good Dynamic Sitting Balance Ability Good Standing Balance and Reactions Static Standing Balance Ability Fair Dynamic Standing Balance Ability Poor Device Used FWW M5 PT-IP Objective Assessments Start: 07/24/24 13:18 Freq: NEEDED Status: Active Protocol: Document 07/24/24 10:25 AB (Rec: 07/24/24 13:43 AB [id number]) Orientation Orientation/Cognition Level of Alertness Alert Orientation Name,Place,Situation Language Function Ability No Deficits Noted Safety Awareness Decreased Safety Awareness Memory Description No Deficits Noted Gross Range of Motion Lower Extremity ROM Assessment Left Impaired Impairments L knee flexion: ~ 70 deg L knee extension: ~ 30 deg less to 0 Strength Lower Extremity Strength Assessment Left Impaired Hip 4-/5 Knee 3+/5 Muscle Tone Muscle Tone WNL Yes M6 PT-IP Treatment Start: 07/24/24 13:18 Freq: NEEDED Status: Active Protocol: Document 07/25/24 11:00 KS (Rec: 07/25/24 12:19 KS [id number]) Physical Therapy Treatment Exercises Exercises Ankle Pumps,Gluteal Sets,Quad Sets,Heel Slides Education Education Provided Safety M7 PT-IP Assessment and Plan Start: 07/24/24 13:18 Freq: NEEDED Status: Active Protocol: Document 07/25/24 11:00 KS (Rec: 07/25/24 12:19 KS [id number]) PT Summary Assessment and Plan Potential Rehabilitation Potential Fair Summary Impairments Pain,ROM,Strength,Balance, Coordination,Sensation,Tone, Cognition,Bed Mobility, Transfers,Gait,Activity Tolerance Progress Towards Goals Slow Progress due to Pain,Slow Progress due to Activity Tolerance,Slow Progress - Other Assessment Summary Pt continues to be limited by high level of pain in L knee. He required Mod to Max A for bed mobility and Mod A for sit <>Stand, Min-Mod for stand step pivot transfer using FWW. Pt became lightheaded, sweaty , and nausea intially when sup <>sit. Unable to progress gait distance due to lightheadedness etc and pain. Depsite pain today, pt remains motivated to go to acute rehab. Will continue to assess progress. Goals Bed Mobility Goal Independent Transfer Goal Standby Assistance,Front Wheeled Walker Gait Goal Standby Assistance,Front Wheel Walker Gait Distance 150 Days to Meet Goals 5 Frequency of Treatment Frequency Of Treatment Twice a Day Treatment Plan Physical Therapy Treatment Plan Bed Mobility Training,Transfer Training,Gait Training, Therapeutic Exercise,Balance Retraining,Post Op Education, Discharge Planning,Hot or Cold Pack,Neuromuscular Re-ed, Coordination Retraining,Manual Therapy Weight Bearing Status Weight Bearing Status Weight Bear as Tolerated Allowed Weight Bearing Amount (enter % LLE WBAT or #) (%) Recommendations To Nursing Amount of Assist Needed 1 Person Assist Discharge Recommendations PT Discharge Recommendations SNF vs Acute Rehab Transportation Needs at Discharge Private Vehicle,Wheelchair/ Cabulance - PT assist 1
--- NOTE | 2024-07-25 14:56 | CM.DPNOTE ---
Addendum entered by JEFFREY White 07/25/24 15:31: ADD: Referrals emailed to [facility] and [facility] needed. Original Note: BRADNON Rudd Spoke with Kathya at [facility] P [phone] F [phone] inpatient rehab throughout the morning. Faxed updated clinical. Kathya explains patient does not meet medical criteria for inpatient rehab and has been declined at this time. Updated patient. Patient tells this SENIOR SALES ASSOCIATE he does not feel he can safely discharge home and says Dr Louis agrees that he needs SNF. Asked patient for SNF preference; encouraged patient to consult medicare.gov for further information. Patient asks this SENIOR SALES ASSOCIATE to call Dr Louis to ask for her SNF preference list. Explained that patient can call Dr Louis's office to get her input, then can update this CM team with preference list. Patient is agreeable to this SENIOR SALES ASSOCIATE sending out referrals to his initial choices of [facility] and [facility]. Bedside RN reports patient's son David [phone], who lives in [place], would like an update on dispo. Unable to complete this call today. Plan: Discharge to SNF is anticipated, patient does not feel he is safe to return home, SNF referrals will be started. Need PASRR. Transport via anticipated. BIENVENIDO
--- NOTE | 2024-07-25 15:17 | OT.IPNOTE ---
Pt states insurance has denied acute rehab and now wanting to go to skilled rehab. Pt in too much pain to do OT at this time as just finished with PT. To check on pt tomorrow.
[2024-07-25] MEDS: HYDROMORPHONE 2 MG TABLET PO (16:12)
--- NOTE | 2024-07-25 16:17 | PT.IPTN ---
Current Diagnoses Unilateral primary osteoarthritis, left knee (07/23/24) Other postprocedural complications and disorders of genitourinary system (07/23/24) Other retention of urine (07/23/24) Surgery Performed Operation Date: 07/23/24 13:45 Actual Procedures p Total Knee Arthroplasty - Robot(Left) - Josee Louis MD Physical Therapy Treatment Note M2 PT-IP Current Condition Start: 07/24/24 13:18 Freq: NEEDED Status: Active Protocol: Document 07/24/24 10:25 AB (Rec: 07/24/24 13:43 AB [id number]) Physical Therapy Current Condition Current Condition Evaluation Date 07/24/24 Treatment Diagnosis s/p L TKA; difficulty in walking Onset Date 07/23/24 M3 PT-IP Subjective Start: 07/24/24 13:18 Freq: NEEDED Status: Active Protocol: Document 07/25/24 13:21 AB(2) (Rec: 07/25/24 16:17 AB(2) [id number]) Subjective Physical Therapy Visit Type Type Treatment Note Visit Start Time 14:58 Visit Stop Time 15:08 Number of ELECTRIC DEICER INSPECTOR Visits 2 Physical Therapy Visit Comments Patient Comments agreeable to do PT Therapy Pain Assessment Pain When Pain Assessed During Mobility Pain Present Pain Present Pain Reported Location Left Knee Intensity 8 Scale Used Numeric (0 - 10) Pain Behaviors Calling Out,Facial Grimacing, Holding Area,Moaning, Restlessness,Wincing Pain Management Techniques Distraction,Modification of Treatment,Re-positioning M4 PT-IP Mobility and Gait Start: 07/24/24 13:18 Freq: NEEDED Status: Active Protocol: Document 07/25/24 13:21 AB(2) (Rec: 07/25/24 16:17 AB(2) [id number]) PT-Bed Mobility Assessment Sit to Supine Sit to Supine Moderate Assistance,1 Person Assistance,Bedrails PT-Transfer Assessment Sit to and From Stand Sit to and from Stand Moderate Assistance,1 Person Assistance,Use of Upper Extremities Equipment Transfer Assistive Device Gait Belt,Front Wheeled Walker Orthotic/Prosthetic Devices or Brace: No Transfers Transfer Destination Bed Transfer Technique ambulated Transfer Ability Level of Assist Moderate Assistance,1 Person Assistance,Use of Upper Extremities Comments Mobility Comments Patient transfers sit to stand from chair with Mod assist using UE's, FWW. Gait Assessment Gait Gait Assistance Required: Minimum Assistance,Moderate Assistance,1 Person Assist Distance (Feet) 2 Able to Maintain Weight Bearing Status Yes During Gait Assistive Devices Assistive Device Gait Belt,Front Wheeled Walker Orthotic/Prosthetic Devices or Brace: No Gait Deviations General Gait Pattern Decreased Stride Length, Decreased Feet Clearance,Step- to Gait Factors Limiting Gait Function Factors Limiting Gait Function Decreased Activity Tolerance, Decreased Strength,Difficulty Following Directions,Pain,Poor Balance,Poor Safety Awareness Comments Gait Comments Patient L LE buckled on first step requiring Mod assist to hold upright posture with FWW. Patient ed (verbal and visual prior to first step, then Verbal throughout to Push down on FWW when stepping to improve tolerance to weightbearing L LE) Patient able to ambulate with FWW min assist 2 feet to bed without buckling, post practice stepping in place. PT-Balance Assessment Sitting Balance and Reactions Static Sitting Balance Ability Good Dynamic Sitting Balance Ability Good Standing Balance and Reactions Static Standing Balance Ability Fair Dynamic Standing Balance Ability Poor Device Used FWW Comments Other Balance Tests/Deviations/Treatment Patient leans back excessively : when seated when chair is changed from reclined to upright. M5 PT-IP Objective Assessments Start: 07/24/24 13:18 Freq: NEEDED Status: Active Protocol: Document 07/24/24 10:25 AB (Rec: 07/24/24 13:43 AB [id number]) Orientation Orientation/Cognition Level of Alertness Alert Orientation Name,Place,Situation Language Function Ability No Deficits Noted Safety Awareness Decreased Safety Awareness Memory Description No Deficits Noted Gross Range of Motion Lower Extremity ROM Assessment Left Impaired Impairments L knee flexion: ~ 70 deg L knee extension: ~ 30 deg less to 0 Strength Lower Extremity Strength Assessment Left Impaired Hip 4-/5 Knee 3+/5 Muscle Tone Muscle Tone WNL Yes M6 PT-IP Treatment Start: 07/24/24 13:18 Freq: NEEDED Status: Active Protocol: Document 07/25/24 13:21 AB(2) (Rec: 07/25/24 16:17 AB(2) [id number]) Physical Therapy Treatment Exercises Exercises Ankle Pumps,Heel Slides, Straight Leg Raises,Supine Hip Abduction Knee ROM Measurement AA for Heel slides, SLR and abduction Education Education Provided Safety M7 PT-IP Assessment and Plan Start: 07/24/24 13:18 Freq: NEEDED Status: Active Protocol: Document 07/25/24 13:21 AB(2) (Rec: 07/25/24 16:17 AB(3) [id number]) PT Summary Assessment and Plan Potential Rehabilitation Potential Fair Summary Impairments Pain,ROM,Strength,Balance, Coordination,Sensation,Tone, Cognition,Bed Mobility, Transfers,Gait,Activity Tolerance Progress Towards Goals Slow Progress due to Pain,Slow Progress due to Activity Tolerance,Slow Progress - Other Assessment Summary Requires increased cues throughout session, able to perform 2 feet of ambulation post training by stepping in place with FWW, rates pain 8/ 10 left knee end of session. Goals Bed Mobility Goal Independent Transfer Goal Standby Assistance,Front Wheeled Walker Gait Goal Standby Assistance,Front Wheel Walker Gait Distance 150 Days to Meet Goals 4 Frequency of Treatment Frequency Of Treatment Twice a Day Treatment Plan Physical Therapy Treatment Plan Bed Mobility Training,Transfer Training,Gait Training, Therapeutic Exercise,Balance Retraining,Post Op Education, Discharge Planning,Hot or Cold Pack,Neuromuscular Re-ed, Coordination Retraining,Manual Therapy Weight Bearing Status Weight Bearing Status Weight Bear as Tolerated Allowed Weight Bearing Amount (enter % LLE WBAT or #) (%) Recommendations To Nursing Amount of Assist Needed 1 Person Assist Discharge Recommendations PT Discharge Recommendations SNF vs Acute Rehab Transportation Needs at Discharge Private Vehicle,Wheelchair/ Cabulance - PT assist 1
[2024-07-25 20:49] VITALS: BP 134/80; PULSE 94; RESP 19; TEMP 36.6; O2SAT 97
[2024-07-25] MEDS: ATORVASTATIN 20 MG TABLET PO (20:56)
[2024-07-26] MEDS: HYDROMORPHONE 2 MG TABLET PO ×2 (00:06→08:37)
[2024-07-26 08:00] VITALS: BP 138/60; PULSE 97; RESP 18; TEMP 36.6; O2SAT 98
[2024-07-26] MEDS: OXYCODONE IR 5 MG TABLET PO (08:19)
[2024-07-26] MEDS: IBUPROFEN 400 MG TABLET PO (08:20)
[2024-07-26] MEDS: DOCUSATE 100 MG CAPSULE PO (08:20)
[2024-07-26] MEDS: DOXYCYCLINE HYCLATE 100 MG TABLET 50 MG PO (08:21)
[2024-07-26] MEDS: ASPIRIN EC 81 MG TABLET PO (08:22)
[2024-07-26] MEDS: FERROUS SULFATE 325 MG TABLET PO (08:23)
[2024-07-26] MEDS: ACETAMINOPHEN 325 MG TABLET 650 MG PO (08:23)
[2024-07-26] MEDS: LORATADINE 10 MG TABLET PO (08:23)
[2024-07-26 08:28] VITALS: BP 138/60; PULSE 97
[2024-07-26] MEDS: lisinopriL 20 MG TABLET PO (08:28)
[2024-07-26] MEDS: CITALOPRAM 10 MG TABLET 20 MG PO (08:31)
--- NOTE | 2024-07-26 08:42 | PM.DS.1 ---
History of Present Illness History of Present Illness Date Patient Seen: 07/26/24 Time Patient Seen: 08:42 Chief complaint: INPT Narrative: The patient has had progressively worsening left knee pain with radiographic changes consistent with arthritis. Non-operative management has failed and the patient has requested total knee replacement. The risks, benefits and alternatives to surgery were discussed with the patient prior to proceeding. Risks discussed included, but were not limited to, failure to relieve pain, stiffness, infection, nerve damage, deep venous thrombosis, pulmonary embolism, stroke, coma, heart attack, permanent paralysis and , as well as the potential need for eventual revision of the prosthetic. Discharge Providers Provider Date of admission: 07/23/24 11:39 Discharge Date: 07/26/24 Consults: 07/23/24 06:00 Consult to Anesthesiology Routine Comment: Consulting Provider: Anesthesiologist Reason for consultation: Regional block for post operative pain control Has provider been notified: No 07/23/24 17:48 Consult to Discharge Planning Routine Comment: Consult to Occupational Therapy Evaluate & Treat Comment: Physician Instructions: Evaluate and treat Consult to Physical Therapy Evaluate & Treat Comment: Physician Instructions: postop TKA protocol 07/24/24 11:06 Consult to Occupational Therapy Evaluate & Treat Comment: Physician Instructions: Evaluate and treat Discharge provider: Amos Baptiste PA-C Summary Hospital Course Discharge Diagnosis: left knee osteoarthritis Hospital Course: Procedure: Left total knee arthroplasty Same procedure as scheduled: Yes Surgeon: Josee Louis Bonderizer Operator: Yue Means Anesthesia Type: General and Spinal Operative Notes Findings: Severe left knee OA, adequate stability Closure Type: primary Specimen(s): none sent Prosthetic devices, grafts, tissues, transplants, or devices: Louis and nephew journey BCS2 size 5 femur, size 4 tibia, poly 9, patella 35 by 7.5 Estimated Blood Loss (mL): 250 Blood products transfused: none Tourniquet time (min): 84 Postoperative urinary incontinence. Status at Discharge Cognitive/behavioral status at discharge: oriented Functional status at discharge: uses cane/walker Overall status at discharge: patient is back to baseline Time Spent with Patient Time spent: Less than 30 minutes Exam Vital Signs (past 8 hours): - 07/26/24 08:00 07/26/24 08:28 Temperature 97.8 F Pulse Rate 97 H 97 H Respiratory Rate 18 Blood Pressure 138/60 138/60 Pulse Oximetry 98 Oxygen Flow Rate 0 Oxygen Delivery Method Room Air Oxygen Flow Rate 0 Narrative Exam Narrative: Patient found resting comfortably in bed. Patient's pain is controlled with oral medication. ?Pain is localized to surgical site. ?Patient declines any new numbness or tingling at the surgical extremity. ?Patient denies any shortness of breath, dizziness, light-headedness, nausea, vomiting, fever or chills. 5/5 strength in hip flexors, quadriceps, hamstrings, DF, PF, EHL bilaterally. Sensation to light touch intact throughout BLE. Calves soft, compressible, nontender. Dressing placed intraoperatively CDI. Resp Effort & Inspection: normal respiratory effort and able to speak in complete sentences Objective Labs 07/24/24 05:40 PFS Medical History (Updated 07/24/24 @ 08:15 by Amos Baptiste PA-C) Enlarged prostate Depression Osteoarthritis Diabetes (1988) Diverticulitis HLD (hyperlipidemia) HTN (hypertension) Nasal congestion Hearing loss RLS (restless legs syndrome) Dizziness Subdural hematoma (~1990) Surgical History (Updated 07/17/24 @ 13:32 by Magalys Biswas RN) Hx of colonoscopy History of back surgery Hx of tonsillectomy Hx of eye surgery Hx of bilateral cataract extraction Status post cholecystectomy Social History household members: significant other Smoking Status: Never smoker alcohol intake: current Discharge Assessment & Plan Assessment and Plan Assessment: Status post left knee total arthroplasty. Post operative urinary retention, resolved Plan of Treatment: Discharge to SNF for post operative rehabilitation due to insufficient support at home with history of anxiety and transient syncope. ? Ambulate and weight bear as tolerated with assistive devices. ? Aspirin 81 mg twice a day for 6 weeks for DVT prevention. ? Baseline pain relief with acetaminophen 500mg every 4 hours as needed and ibuprofen 400 mg every 4 hours as needed. ?Patient has been prescribed oxycodone 5 mg every 4 ?hours as needed for breakthrough pain. ? Initiate physical therapy in the next 5-10 days. ? Keep dressing clean and dry. Keep dressing on until first office visit. If dressing becomes dirty or disrupted, replace with appropriate sized dressing. Follow up in clinic in 2 weeks for wound check. Contact clinic if there are any questions or concerns. Discharge Plan Discharge Plan Patient Disposition: SNF Discharge orders & Medications Prescriptions: New aspirin 81 mg Tablet,Delayed Release (Dr/Ec) 81 mg PO BID Qty: 90 0RF acetaminophen 500 mg tablet 500 mg PO Q4H PRN (Reason: Fever/Mild Pain (1-3)) Qty: 120 0RF docusate sodium 100 mg Capsule 100 mg PO BID PRN (Reason: Constipation) Qty: 30 0RF ondansetron 4 mg Tablet,Disintegrating 4 mg PO Q8HR Qty: 10 0RF oxycodone 5 mg Tablet 5 mg PO Q4H PRN (Reason: Pain, Moderate (4-6)) Qty: 40 0RF Continued loratadine 10 MG tablet 10 mg PO QDAY Qty: 0 ferrous gluconate 236 MG tablet 236 mg PO Q DAY Qty: 0 lisinopril 20 MG tablet 20 mg PO QDAY Qty: 90 1RF simvastatin [Zocor] 40 MG tablet 40 mg PO HS Qty: 90 1RF citalopram 20 MG tablet 20 mg PO QDAY Qty: 90 1RF pioglitazone [Actos] 30 MG tablet 30 mg PO QDAY Qty: 90 1RF doxycycline monohydrate 50 mg Tablet 50 mg PO DAILY tamsulosin 0.4 mg Capsule 0.4 mg PO BEDTIME albuterol sulfate [Ventolin HFA] 90 MCG/PUFF HFA aerosol inhaler 1 puff INH PRN PRN (Reason: Shortness Of Breath) Changed ibuprofen [Advil] 200 mg Tablet 400 mg PO Q4H PRN (Reason: Pain) Qty: 120 0RF Follow up/Referrals: Josee Louis MD [Physician] - 08/02/24 1:30 pm (Follow up w/ Santo Baptiste PA-C, at [facility] office in [place].) Diet/Activity/Treatments Diet: Diet as Tolerated Activity: Weightbearing as tolerated. Walk frequently! Cold/Heat Therapy: Ice to knee as needed for pain. Skin/Wound/Dressing Care Report to your healthcare provider any signs of infection, such as:: chills, fever, night sweats, unusual drainage and unusual redness Dressing: May remove SALLY wrap and shower on 07/26/2024. Leave Aquacel dressing in place. No bathing or otherwise soaking incision. Call the office if the dressing becomes saturated inside. Visit Report/Discharge Packet Instructions: DI for Knee Replacement, DI for Prescription Opioid Use Stand Alone Forms: Patient Portal/API, Surgery Discharge
--- NOTE | 2024-07-26 09:17 | PC.NURSE ---
at the start of shift nurse aid called RN into room, pt stated he felt a little dizzy and asked for apple juice, vitals stable, pt said that the dizziness resolved after given juice, breakfast eaten, and 0900 meds given as well, pt has no complaints at this time.
--- NOTE | 2024-07-26 10:40 | CM.DPC ---
Patient's daughter Leola called this morning and stated that she and client's son Bill prefer for the patient to be discharged to a rehab facility in [facility]. Patient was already accepted for [facility] and [facility] and discharge was planned for today. I discussed this with the patient. Patient said he was frustrated that his kids are influencing where he is getting discharged to. Patient said he prefers to go where he will get the best care. We discussed the reviews of [facility] versus the reviews of 3 facilities in [place]. Patient decided he preferred [facility] after all. Patient discussed this with his daughter by phone and his son Bill. All parties not agree with [facility] discharge today. I called and spoke with Cassy at [facility]. they will come get the patient today around noon by wheelchair van. Patient notified of time, nurse CJ notified of time, patient's son Bill notified of time. PAS[facility] sent to [facility]. I also called Nolvia at [facility] to let her know that we do not need a spot held there any longer. Leola: patient's daughter [phone] Bill: patient's son [phone]
--- NOTE | 2024-07-26 10:55 | OT.IPNOTE ---
Pt going to skilled rehab today. Pt states too sleepy from his pain meds and not wanting to get up. Able to talk to pt of what to expect and questions to ask while at rehab. NO charge.
== END 2024-07-26 11:37 | DRG 470 ==
PROVIDERS: Admitting Provider Orthopaedic Surgery; Referring Provider Orthopaedic Surgery; Visit Provider Orthopaedic Surgery
PROC: 0SRD0JZ Replacement of Left Knee Joint with Synthetic Substitute, Open Approach (ICD-10-PCS; CPT 27447; principal; 2024-07-23 13:45)
DX: M17.12 Unilateral primary osteoarthritis, left knee (principal); R33.9 Retention of urine, unspecified; I10 Essential (primary) hypertension; E78.5 Hyperlipidemia, unspecified; F32.A Depression, unspecified; G89.18 Other acute postprocedural pain; E11.9 Type 2 diabetes mellitus without complications; N40.0 Benign prostatic hyperplasia without lower urinary tract symptoms; Z79.84 Long term (current) use of oral hypoglycemic drugs
CPT/HCPCS: 36415; 73560; 85014; 85018; 97110; 97162; 97165; 97530; 97535; C1776; C1713; J0666; J0690; J1100; J2250; J2405; J2704; J3010